=== PATIENT | male | born 1995 | race African-American/Black ===

== ENCOUNTER 2022-04-18 15:33 | Emergency (ER) | payer SELFPAY ==
[~2022-04-18] VITALS: Ht 172.7 cm; Wt 69.0 kg
[2022-04-18] MEDS ORDERED: HALOPERIDOL LACTATE 5MG/ML VIAL IM STA (15:37)
[2022-04-18] MEDS ORDERED: SODIUM CHLORIDE 0.9% 1,000 ML IV ONE (15:45)
[2022-04-18] MEDS ORDERED: LORAZEPAM 2MG/ML CPJ IM ONE (15:45)
[2022-04-18] MEDS ORDERED: DIPHENHYDRAMINE 50MG/ML VIAL IM ONE (15:45)
[2022-04-18 16:33] LABS: HEMATOCRIT. 40.4 % (42.0-52.0); MEAN CORPUSCULAR VOLUME 87.2 fL (80.0-94.0); MEAN PLATELET VOLUME 8.2 fl (7.4-10.4); PLATELET 265 x1000/uL (130-400); RED BLOOD CELL COUNT 4.63 mill/uL (4.7-6.1); RED CELL DISTRIBUTION WIDTH 14.6 % (11.6-14.6)
[2022-04-18 16:39] LABS: CHLORIDE 105 mEq/L (98-107)
[2022-04-18 16:49] LABS: ETHANOL BLOOD < 10 mg/dL
[2022-04-18 17:27] LABS: PLATELET ESTIMATE NORMAL
[2022-04-18] MEDS ORDERED: DEXTROSE 50% WATER 50ML SYRINGE IV NR (18:00)
[2022-04-18 18:43] LABS: CLARITY URINE CLEAR (CLEAR); COLOR URINE YELLOW (YELLOW); KETONES URINE 2+ (NEGATIVE); LEUKOCYTE ESTERASE URINE NEGATIVE (NEGATIVE); NITRITE URINE NEGATIVE (NEGATIVE); OCCULT BLOOD URINE 3+ (NEGATIVE); PH URINE 5.5 (4.5-8.0); PROTEIN URINE 2+ (NEGATIVE); SPECIFIC GRAVITY URINE 1.033 (1.005-1.030)
[2022-04-18 18:54] LABS: *AMPHETAMINES SCREEN URINE PRESUMTIVE POSITIVE (NEGATIVE); *BARBITURATES SCREEN URINE NEGATIVE (NEGATIVE); *BENZODIAZEPINES SCREEN URINE NEGATIVE (NEGATIVE); *COCAINE SCREEN URINE NEGATIVE (NEGATIVE); CANNABINOID URINE SCREEN NEGATIVE (NEGATIVE); METHADONE URINE SCREEN NEGATIVE (NEGATIVE); OPIATES URINE SCREEN NEGATIVE (NEGATIVE); PHENCYCLIDINE URINE SCREEN NEGATIVE (NEGATIVE)
[2022-04-19 03:52] VITALS: BP 112/75
== END 2022-04-19 04:00 | disposition home or self-care (01) ==
LOC: ER 15:33
DX: F23 Brief psychotic disorder (principal); F19.10 Other psychoactive substance abuse, uncomplicated; J45.909 Unspecified asthma, uncomplicated; R00.0 Tachycardia, unspecified
CPT/HCPCS: 36415; 80053; 80305; 80307; 80320; 80329; 81003; 82962; 85025; 93005; 96361; 96372; 96374; 99285; J1200; J1630; J2060; J7030; Z7610; G0480